=== PATIENT | female | born 1995 | race Caucasian/White ===

== ENCOUNTER 2017-12-13 22:59 | Emergency (ER) | payer BC, OTHER ==
[2017-12-14 00:28] LABS: ABSOLUTE EOSINOPHILS # (AUTO) 0.1 10^3/uL (0.0-0.6); ABSOLUTE LYMPHOCYTES (AUTO) 2.2 10^3/uL (0.5-4.7); ABSOLUTE MONOCYTES (AUTO) 0.4 10^3/uL (0.1-1.4); ABSOLUTE NEUT (AUTO) 5.7 10^3/uL (1.7-8.2); BASOPHILS % (AUTO) 0.4 % (0-2); EOSINOPHILS % (AUTO) 1.1 % (0-6); HEMATOCRIT 40.3 % (36.0-47.0); HEMOGLOBIN 13.6 g/dL (12.0-15.5); LYMPHOCYTES % (AUTO) 26.7 % (13-45); MEAN CORPUSCULAR HEMOGLOBIN 27.8 pg (27.0-33.4); MEAN CORPUSCULAR HGB CONC 33.6 g/dL (32.0-36.0); MEAN CORPUSCULAR VOLUME 83 fl (80-97); MONOCYTES % (AUTO) 4.5 % (3-13); PLATELET COUNT 280 10^3/uL (150-450); RED BLOOD COUNT 4.88 10^6/uL (3.72-5.28); RED CELL DISTRIBUTION WIDTH 13.4 % (11.5-14.0); SEGMENTED NEUTROPHILS % (AUTO) 67.3 % (42-78); TOTAL CELLS COUNTED % (AUTO) 100 %; WHITE BLOOD COUNT 8.4 10^3/uL (4.0-10.5)
[2017-12-14 00:41] LABS: ALANINE AMINOTRANSFERASE 19 U/L (9-52); ALBUMIN 4.4 g/dL (3.5-5.0); ALKALINE PHOSPHATASE 52 U/L (38-126); ANION GAP 14 (5-19); ASPARTATE AMINO TRANSFERASE 16 U/L (14-36); BILIRUBIN,DIRECT 0.2 mg/dL (0.0-0.4); BILIRUBIN,TOTAL 0.6 mg/dL (0.2-1.3); BLOOD UREA NITROGEN 15 mg/dL (7-20); CALCIUM 9.7 mg/dL (8.4-10.2); CARBON DIOXIDE 25 mmol/L (22-30); CHLORIDE 105 mmol/L (98-107); GLUCOSE 124 mg/dL (75-110); POTASSIUM 4.1 mmol/L (3.6-5.0); SODIUM 143.5 mmol/L (137-145); TOTAL PROTEIN 7.3 g/dL (6.3-8.2)
[2017-12-14 00:42] LABS: ACETAMINOPHEN < 10 ug/mL (10-30); ALCOHOL < 10 mg/dL (NONE DETECTED); SALICYLATE < 1.0 mg/dL (2.0-20.0)
[2017-12-14] MEDS ORDERED: OLANZAPINE 5 MG TAB.RAPDIS PO ONE (00:49)
[2017-12-14 02:45] LABS: AMORPHOUS SEDIMENT,URINE TRACE /HPF; APPEARANCE,URINE TURBID; BILIRUBIN,URINE NEGATIVE (NEGATIVE); COLOR,URINE YELLOW; GLUCOSE, URINE NEGATIVE (NEGATIVE); KETONES,URINE NEGATIVE (NEGATIVE); LEUKOCYTE ESTERASE,URINE NEGATIVE (NEGATIVE); NITRITE,URINE NEGATIVE (NEGATIVE); PROTEIN,URINE 100 mg/dL (NEGATIVE); URINE SPECIFIC GRAVITY 1.027
[2017-12-14 03:04] LABS: URINE BARBITURATES SCREEN NEGATIVE; URINE BENZODIAZEPINES SCREEN UNCONFIRMED POSITIVE; URINE COCAINE SCREEN NEGATIVE; URINE MARIJUANA (THC) SCREEN NEGATIVE; URINE METHADONE SCREEN NEGATIVE; URINE PHENCYCLIDINE SCREEN NEGATIVE
--- NOTE | 2017-12-14 04:47 | ER Document Report ---
ED General - General TRAVEL OUTSIDE OF THE [place] IN LAST 30 DAYS: No - HPI Patient complains to provider of: History of polysubstance abuse <MIKE CARDENAS - Last Filed: 12/14/17 04:45> <LESLIE SALEEM - Last Filed: 12/14/17 10:08> <ADEEL PERRY - Last Filed: 12/14/17 11:43> - General Chief Complaint: Psych Problem Stated Complaint: DETOX Time Seen by Provider: 12/14/17 00:18 - HPI Notes: Patient coming in [facility] requesting detox patient has a history of polysubstance abuse with methamphetamines and Xanax. Patient states last use is approximate 24 hours ago. Patient has had a long history of polysubstance abuse however according to the mother's recently relapsed. Patient otherwise denies any homicidal suicidal and would like to go to detox. Patient denies any other symptoms other than being unable to sleep for the last 24 hours. Patient resting comfortably upon my evaluation denies fevers chills nausea vomiting diarrhea. (MIKE CARDENAS) - Related Data Allergies/Adverse Reactions: No Known Allergies Allergy (Verified 06/02/15 14:24) Past Medical History - Social History Smoking Status: Current Every Day Smoker Frequency of alcohol use: None Drug Abuse: Methamphetamine, Prescription drugs Family History: Reviewed & Not Pertinent Patient has suicidal ideation: No Patient has homicidal ideation: No Renal/ Medical History: Denies: Hx Peritoneal Dialysis <MIKE CARDENAS - Last Filed: 12/14/17 04:45> Review of Systems - Review of Systems Constitutional: Other - History of polysubstance abuse EENT: No symptoms reported Cardiovascular: No symptoms reported Respiratory: No symptoms reported Gastrointestinal: No symptoms reported Genitourinary: No symptoms reported Female Genitourinary: No symptoms reported Musculoskeletal: No symptoms reported Skin: No symptoms reported Hematologic/Lymphatic: No symptoms reported Neurological/Psychological: No symptoms reported <MIKE CARDENAS - Last Filed: 12/14/17 04:45> Physical Exam - Vital signs Interpretation: Normal - General General appearance: Appears well, Alert - HEENT Head: Normocephalic, Atraumatic Eyes: Normal Pupils: PERRL - Respiratory Respiratory status: No respiratory distress Chest status: Nontender Breath sounds: Normal Chest palpation: Normal - Cardiovascular Rhythm: Regular Heart sounds: Normal auscultation Murmur: No - Abdominal Inspection: Normal Distension: No distension Bowel sounds: Normal Tenderness: Nontender Organomegaly: No organomegaly - Back Back: Normal, Nontender - Extremities General upper extremity: Normal inspection, Nontender, Normal color, Normal ROM , Normal temperature General lower extremity: Normal inspection, Nontender, Normal color, Normal ROM , Normal temperature, Normal weight bearing. No: Fede's sign - Neurological Neuro grossly intact: Yes Cognition: Normal Orientation: AAOx4 [place] Coma Scale Eye Opening: Spontaneous [place] Coma Scale Verbal: Oriented [place] Coma Scale Motor: Obeys Commands Patricia Coma Scale Total: 15 Speech: Normal Motor strength normal: LUE, RUE, LLE, RLE Sensory: Normal - Psychological Associated symptoms: Normal affect, Normal mood - Skin Skin Temperature: Warm Skin Moisture: Dry Skin Color: Normal <MIKE CARDENAS - Last Filed: 12/14/17 04:45> - Vital signs Vitals: Temp Pulse Resp BP Pulse Ox 98 F 113 H 18 118/73 99 12/13/17 23:57 12/13/17 23:57 12/13/17 23:57 12/13/17 23:57 12/13/17 23:57 Course - Laboratory Result Diagrams: 12/14/17 00:20 12/14/17 00:20 <MIKE CARDENAS - Last Filed: 12/14/17 04:45> - Laboratory Result Diagrams: 12/14/17 00:20 12/14/17 00:20 <LESLIE SALEEM - Last Filed: 12/14/17 10:08> - Laboratory Result Diagrams: 12/14/17 00:20 12/14/17 00:20 <ADEEL PERRY - Last Filed: 12/14/17 11:43> - Re-evaluation Re-evalutation: 12/14/17 04:46 Patient requested to be evaluated by mental health team for her polysubstance abuse in the morning. Otherwise patient does not need any IVC criteria. Patient did request medication to help her sleep patient was given a dose of Zydis. Otherwise patient medically stable for psychiatric evaluation in the morning (MIKE CARDENAS) - Vital Signs Vital signs: Temp Pulse Resp BP Pulse Ox 97.4 F 65 14 98/54 L 100 12/14/17 05:07 12/14/17 05:07 12/14/17 05:07 12/14/17 05:07 12/14/17 05:07 - Laboratory Laboratory results interpreted by me: 12/14/17 12/14/17 00:20 01:18 Glucose 124 H Urine Protein 100 H Urine Urobilinogen 2.0 H Salicylates < 1.0 L Acetaminophen < 10 L Discharge <MIKE CARDENAS - Last Filed: 12/14/17 04:45> <LESLIE SALEEM - Last Filed: 12/14/17 10:08> <ADEEL PERRY - Last Filed: 12/14/17 11:43> - Discharge Clinical Impression: Methamphetamine abuse, Benzodiazepine abuse Condition: Stable Disposition: HOME, SELF-CARE Additional Instructions: AMPHETAMINE / METHAMPHETAMINE ABUSE: Amphetamines are addicting stimulants. Amphetamines overstimulate the nervous system and give a false feeling of power and mastery. These drugs may be obtained as prescription pills for weight loss, narcolepsy, or attention- deficit disorder. More often they're bought as an illegal street drug, methamphetamine (crank, crystal, speed). Using amphetamines repeatedly can lead to serious medical problems including malnutrition, severe depression, and paranoia. It can take increasing amounts to feel good. Eventually, there will be a "burn out." When you go off amphetamines there is a period of depression that may last for weeks or even months. High doses of amphetamines can cause seizures, confusion, hallucinations, delusions, high blood pressure, muscle damage, heart damage, or sudden . Many times these deadly complications occur even with "normal" doses. Injection of amphetamines is risky for developing abscesses, endocarditis ( heart infection), pneumonia, and AIDS. Withdrawal from amphetamines often causes anxiety, depression, and drug cravings. Some users become paranoid and psychotic. There may be cramps, nausea , and vomiting. Many treatment programs are available, but you must make the decision to quit. Medication can be prescribed to control the symptoms of amphetamine toxicity (beta blockers or benzodiazepines). Withdrawal symptoms may require tranquilizers. FOLLOW-UP CARE: The behavioral health team has contacted [facility] and started the process for admission. Please continue working with [facility] for admission for detox. They will be picking you up from here. You have also been provided a local resource list of area providers for substance abuse. If you experience worsening or a significant change in your symptoms, notify the physician immediately or return to the Emergency Department at any time for re-evaluation. .
--- NOTE | 2017-12-14 09:01 | EKG REPORT ---
SEVERITY:- NORMAL ECG - SINUS RHYTHM : Confirmed by: Darlene Mcgarry 14-Dec-2017 09:00:31
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
--- NOTE | 2017-12-14 12:16 | PSYCHOLOGICAL NOTE ---
Psych Note - Psych Note Psych Note: Reason for consult: detox Consent permissions: Patient's mother, Janeen, Pt. reports wanting detox from meth and xanax, pt. denies SI/HI, mother reports she has been depressed, pt. last used yesterday. Pt. wants voluntary committal. Patient discloses that she would like substance abuse treatment. She reports that she uses meth for about 1 year in addition to Xanax. She denies ever having any previous inpatient substance abuse treatment. Patient denies history of mental health but reports "I went to an outpatient provider once and they tried to put me in anxiety meds but it did not work so I stopped started using again." Patient reports she is afraid of overdosing and wants help. Behavior health team contacted [facility]. Process for admissions was started. Patient was accepted and transportation by [facility] will be conducted today. Patient is alert and orientated to person, place, time and circumstance. Mood is euthymic with congruent affect. Patient denies suicidal and homicidal ideation. Patient request substance abuse detox for both methamphetamine and Xanax. Delusions are absent and behaviors congruent with intact reality based presentation i.e. organized and linear thought process. Eye contact is well- maintained. Conversational speech was within normal rate, tone and prosody. Intellectual abilities appear to be within the average range. Attention and concentration were good. Insight, judgment, impulse control are fair as evidenced by attempting to receive substance abuse treatment. No medication recommendations at this time 292.9 (1 3.99) unspecified Xanax abuse 292.9 (F15.99) unspecified methamphetamine abuse Impression\\plan: Patient is cleared from acute psychiatric services. Patient requests detox and substance abuse treatment. Behavioral health team contacted [facility] and patient was accepted. Patient will be transported by [facility] to their facility. Dr. Henderson was consulted and the care and management this patient; attending physician is agreement with recommendations and disposition.
[2017-12-14 14:01] VITALS: BP 106/58
== END 2017-12-14 14:00 | disposition home or self-care (01) ==
LOC: ER 22:59
DX: F15.10 Other stimulant abuse, uncomplicated (principal); F19.10 Other psychoactive substance abuse, uncomplicated; F17.200 Nicotine dependence, unspecified, uncomplicated
CPT/HCPCS: 93005; 99285; 36415; 80307 ×4; 85025; 81025; 80053; 81001; 93010; J3490